=== PATIENT | male | born 1960 | race Caucasian/White ===

== ENCOUNTER 2017-08-08 15:07 | Inpatient (IN) | payer OTHER ==
[2017-08-08] MEDS ORDERED: Lactated Ringers 1,000 ML IV ONE (15:26)
[2017-08-08] MEDS: Sodium Chloride 0.9% 10 ML Syringe FLUSH PRN ×3 (15:33→22:48)
[2017-08-08 15:55] LABS: CHLORIDE,CL 103 mmol/L (101-111); SODIUM,NA 141 mmol/L (135-145)
[2017-08-08] MEDS ORDERED: MVI, Adult with Vitamin K 10 ML, Thiamine 100 MG, Folic Acid 1 MG in Lactated Ringers 1... IV ONE ×4 (16:22)
[2017-08-08] MEDS ORDERED: Albuterol 6.7 GM Inhaler INH PRN (16:49)
[2017-08-08] MEDS ORDERED: atorvaSTATin 20 MG Tab PO SCH (17:00)
--- NOTE | 2017-08-08 17:13 | EDM.PDOCBH ---
Scribed by Davina Solorio 08/08/17 1313 for Chandler Walter MD ED HPI GENERAL MEDICAL PROBLEM - General Chief Complaint: Drug or Alcohol Abuse Stated Complaint: BROUGHT IN LAW ENFORCEMENT Time Seen by Provider: 08/08/17 15:20 Source of Information: Reports: Patient, RN, RN Notes Reviewed History Limitations: Reports: Intoxication - History of Present Illness INITIAL COMMENTS - FREE TEXT/NARRATIVE: Patient presents by police with request for medical clearance due to intoxication after being arrested for DUI.Patient denies any complaints. During triage assessment patient was found to have a blood pressure of 70/33. Review of old records reveals history of hypertension and documented blood pressure of 170/90. Patient denies any chest pain, shortness of breath, dizziness or syncope. Onset: Today Severity: Severe Improves with: Reports: None Worsens with: Reports: None Associated Symptoms: Reports: No Other Symptoms - Related Data Allergies Allergy/AdvReac Type Severity Reaction Status Date / Time No Known Allergies Allergy Verified 07/27/14 06:15 Home Meds: Home Meds Albuterol [Ventolin HFA] 2 puff INH Q6H 07/23/14 [History] Aspirin [Ecotrin] 1 tab PO DAILY 07/23/14 [History] Diclofenac Sodium [Voltaren 1% Gel] 1 squirt TOP QID 07/23/14 [History] Gabapentin [Neurontin] 1 tab PO BEDTIME 07/23/14 [History] Hydrochlorothiazide 1 tab PO DAILY 07/23/14 [History] Lisinopril 1 tab PO DAILY 07/23/14 [History] Mometasone Furoate [Asmanex 220 MCG] 1 puff INH DAILY 07/23/14 [History] Mometasone/Formoterol [Dulera 200 Mcg/5 Mcg Inhaler] 2 puff INH BID 07/23/14 [ History] traMADol [Ultram] 1 tab PO BID 07/23/14 [History] traZODone 1 tab PO BEDTIME 07/23/14 [History] Allopurinol [Zyloprim] 100 mg PO DAILY 08/08/17 [History] Escitalopram Oxalate 10 mg PO BEDTIME 08/08/17 [History] Omeprazole 20 mg PO 08/08/17 [History] Timolol Maleate [Istalol] 1 drop 08/08/17 [History] atorvaSTATin Calcium [Atorvastatin Calcium] 20 mg PO 08/08/17 [History] tiZANidine [Zanaflex] 8 mg PO PRN 08/08/17 [History] Social & Family History - Tobacco Use Smoking Status *Q: Current Every Day Smoker Years of Tobacco use: 40 - Alcohol Use Days Per Week of Alcohol Use: 7 Number of Drinks Per Day: 3 Total Drinks Per Week: 21 - Recreational Drug Use Recreational Drug Use: No Drug Use in Last 12 Months: No ED ROS GENERAL - Review of Systems Review Of Systems: ROS reveals no pertinent complaints other than HPI. ED EXAM, BEHAVIORAL HEALTH - Physical Exam Exam: See Below Exam Limited By: Intoxication General Appearance: Alert, WD/WN, No Apparent Distress Eye Exam: Bilateral Eye: Normal Inspection Ears: Normal External Exam, Normal Canal, Hearing Grossly Normal, Normal TMs Nose: Normal Inspection, Normal Mucosa, No Blood Throat/Mouth: Other (dry oral membranes) Head: Atraumatic, Normocephalic Neck: Normal Inspection, Supple, Non-Tender, Full Range of Motion Respiratory/Chest: No Respiratory Distress, Lungs Clear, Normal Breath Sounds, No Accessory Muscle Use, Chest Non-Tender Cardiovascular: Normal Peripheral Pulses, Regular Rate, Rhythm, No Edema, No Gallop, No JVD, No Murmur, No Rub GI/Abdominal: Normal Bowel Sounds, Soft, Non-Tender, No Organomegaly, No Distention, No Abnormal Bruit, No Mass (Male) Exam: Deferred Rectal (Males) Exam: Deferred Back Exam: Other (except lumbar paraspinal tenderness.) Extremities: Normal Inspection, Normal Range of Motion, Non-Tender, Normal Capillary Refill, No Pedal Edema Neurological: Other (drowsy/intoxicated.) Psychiatric: Flat Affect Skin Exam: Warm EKG INTERPRETATION EKG Date: 08/08/17 Time: 15:34 Rhythm: Other (sinus rhythm) Rate (Beats/Min): 70 [place]: Normal P-Wave: Present QRS: Normal ST-T: Normal QT: Normal COURSE, BEHAVIORAL HEALTH COMP - Course Vital Signs: Last Vital Signs Temp 36.0 C 08/08/17 15:37 Pulse 76 08/08/17 16:36 Resp 18 08/08/17 16:36 BP 92/53 L 08/08/17 16:36 Pulse Ox 98 08/08/17 16:36 Orders, Labs, Meds: Active Orders 24 hr Category Date Time Status Blood Glucose Check, Bedside [] ONETIME Care 08/08/17 15:27 Active EKG 12 Lead [EKG Documentation Completion] [] STAT Care 08/08/17 15:27 Active Peripheral IV Care [] . DIRECTED Care 08/08/17 15:28 Active BASIC METABOLIC PANEL,BMP [CHEM] AM Lab 08/09/17 05:15 Ordered CBC WITH AUTO DIFF [HEME] AM Lab 08/09/17 05:15 Ordered DRUG SCREEN URINE BIORAD [URCHEM] Stat Lab 08/08/17 15:27 Uncollected UA W/MICROSCOPIC [URIN] Stat Lab 08/08/17 15:27 Uncollected Albuterol [Proventil HFA] Med 08/08/17 16:49 Active 0 gm INH Q6H PRN Allopurinol [Zyloprim] Med 08/09/17 09:00 Active 100 mg PO DAILY Aspirin [Halfprin] Med 08/09/17 09:00 Active 81 mg PO DAILY Escitalopram [Lexapro] Med 08/08/17 21:00 Active 10 mg PO BEDTIME Folic Acid Med 08/08/17 17:00 Active 1 mg PO DAILY MVI, Adult with Vitamin K [Infuvite Adult] 10 ml Med 08/08/17 16:22 Active Thiamine [Vitamin B-1] 100 mg Folic Acid 1 mg Lactated Ringers [Ringers, Lactated] 1,000 ml IV .BOLUS Mometasone Furoate [Asmanex 220 MCG] Med 08/08/17 17:00 Active 1 puff INH DAILY Multivitamins,Therapeutic [Thera] Med 08/08/17 21:00 Active 1 each PO BEDTIME Pantoprazole [ProTONIX] Med 08/08/17 21:00 Active 40 mg PO BEDTIME Sodium Chloride 0.9% [Saline Flush] Med 08/08/17 15:26 Active 10 ml FLUSH ASDIRECTED PRN Thiamine [Vitamin B-1] Med 08/08/17 17:00 Active 100 mg PO DAILY atorvaSTATin [Lipitor] Med 08/08/17 17:00 Active 20 mg PO .QHS Peripheral IV Insertion Adult [OM.PC] Stat Oth 08/08/17 15:26 Ordered Medication Orders Albuterol (Proventil Hfa) 0 gm INH Q6H PRN PRN Reason: sob Allopurinol (Zyloprim) 100 mg PO DAILY [facility] Aspirin (Halfprin) 81 mg PO DAILY [facility] Atorvastatin Calcium (Lipitor) 20 mg PO .QHS [facility] Escitalopram Oxalate (Lexapro) 10 mg PO BEDTIME [facility] Folic Acid (Folic Acid) 1 mg PO DAILY [facility] Multivitamins/Minerals 10 ml/Thiamine HCl 100 mg/ Folic Acid 1 mg/ Lactated Ringer's 1,011.2 mls @ 999 mls/hr IV .BOLUS ONE Stop: 08/08/17 17:22 Last Admin: 08/08/17 16:32 Dose: 999 mls/hr Mometasone Furoate (Asmanex 220 Mcg) 1 puff INH DAILY [facility] Multivitamins (Thera) 1 each PO BEDTIME [facility] Pantoprazole Sodium (Protonix) 40 mg PO BEDTIME [facility] Sodium Chloride (Saline Flush) 10 ml FLUSH ASDIRECTED PRN PRN Reason: Keep Vein Open Last Admin: 08/08/17 15:33 Dose: 10 ml Thiamine HCl (Vitamin B-1) 100 mg PO DAILY [facility] Laboratory Tests 08/08/17 08/08/17 08/08/17 Range/Units 15:20 15:20 15:35 WBC 5.9 (5.0-10.0) 10^3/uL RBC 4.94 (4.6-6.2) 10^6/uL Hgb 14.8 (14.0-18.0) g/dL Hct 43.8 (40.0-54.0) % MCV 88.7 (80-100) fL MCH 30.0 (27.0-34.0) pg MCHC 33.8 (33.0-35.0) g/dL Plt Count 145 L (150-450) 10^3/uL Neut % (Auto) 62.0 (42.2-75.2) % Lymph % (Auto) 27.1 (20.5-50.1) % Brooks % (Auto) 9.1 H (2-8) % Eos % (Auto) 0.3 L (1.0-3.0) % Baso % (Auto) 1.5 H (0.0-1.0) % Sodium 141 (135-145) mmol/L Potassium 3.9 (3.6-5.0) mmol/L Chloride 103 (101-111) mmol/L Carbon Dioxide 22.0 (21.0-31.0) mmol/L Anion Gap 19.9 BUN 12 (7-18) mg/dL Creatinine 1.7 H (0.6-1.3) mg/dL Est Cr Clr Drug Dosing 52.88 mL/min Estimated GFR (MDRD) 41 BUN/Creatinine Ratio 7.05 Glucose 132 H (74-105) mg/dL POC Glucose 120 H (70-105) mg/dl Calcium 8.9 (8.4-10.2) mg/dl Total Bilirubin 0.6 (0.2-1.0) mg/dL AST 58 H (10-42) IU/L ALT 81 H (10-60) IU/L Alkaline Phosphatase 76 (42-121) IU/L Troponin I < 0.02 (0.00-0.02) ng/ml Total Protein 7.3 (6.7-8.2) g/dl Albumin 4.4 (3.2-5.5) g/dl Globulin 2.9 Albumin/Globulin Ratio 1.52 Ethyl Alcohol 253 mg/dL Medications Generic Name Dose Route Start Last Admin Trade Name Freq PRN Reason Stop Dose Admin Albuterol 0 gm 08/08/17 16:49 Proventil Hfa INH Q6H PRN sob Allopurinol 100 mg 08/09/17 09:00 Zyloprim PO DAILY [facility] Aspirin 81 mg 08/09/17 09:00 Halfprin PO DAILY [facility] Atorvastatin Calcium 20 mg 08/08/17 17:00 Lipitor PO .QHS [facility] Escitalopram Oxalate 10 mg 08/08/17 21:00 Lexapro PO BEDTIME [facility] Folic Acid 1 mg 08/08/17 17:00 Folic Acid PO DAILY [facility] Multivitamins/Minerals 10 ml/ 1,011.2 mls @ 999 mls/hr 08/08/17 16:22 16:32 Thiamine HCl 100 mg/ Folic IV 08/08/17 17:22 999 mls/hr Acid 1 mg/ Lactated Ringer's .BOLUS ONE Administration Mometasone Furoate 1 puff 08/08/17 17:00 Asmanex 220 Mcg INH DAILY [facility] Multivitamins 1 each 08/08/17 21:00 Thera PO BEDTIME [facility] Pantoprazole Sodium 40 mg 08/08/17 21:00 Protonix PO BEDTIME [facility] Sodium Chloride 10 ml 08/08/17 15:26 08/08/17 15:33 Saline Flush FLUSH 10 ml ASDIRECTED PRN Administration Keep Vein Open Thiamine HCl 100 mg 08/08/17 17:00 Vitamin B-1 PO DAILY [facility] Discontinued Medications Generic Name Dose Route Start Last Admin Trade Name Freq PRN Reason Stop Dose Admin Lactated Ringer's 1,000 mls @ 999 mls/hr 08/08/17 15:26 08/08/17 15:33 Ringers, Lactated IV 08/08/17 16:26 999 mls/hr .BOLUS ONE Administration Departure - Departure Time of Disposition: 17:01 ((Admit to Dr. Rivas)) Disposition: Refer to Observation Condition: Fair Clinical Impression: Dehydration, Chronic alcohol abuse Hypotension Qualifiers: Hypotension type: unspecified hypotension type Qualified Code(s): I95.9 - Hypotension, unspecified Alcohol intoxication Qualifiers: Complication of substance-induced condition: uncomplicated Qualified Code(s): F10.920 - Alcohol use, unspecified with intoxication, uncomplicated - Discharge Information Forms: ED Department Discharge - My Orders Last 24 Hours: My Active Orders 08/08/17 15:26 Sodium Chloride 0.9% [Saline Flush] 10 ml FLUSH ASDIRECTED PRN Peripheral IV Insertion Adult [OM.PC] Stat 08/08/17 15:27 Blood Glucose Check, Bedside [RC] ONETIME EKG 12 Lead [EKG Documentation Completion] [RC] STAT DRUG SCREEN URINE BIORAD [URCHEM] Stat UA W/MICROSCOPIC [URIN] Stat 08/08/17 15:28 Peripheral IV Care [RC] . DIRECTED 08/08/17 16:22 MVI, Adult with Vitamin K [Infuvite Adult] 10 ml Thiamine [Vitamin B-1] 100 mg Folic Acid 1 mg Lactated Ringers [Ringers, Lactated] 1,000 ml IV .BOLUS - Assessment/Plan Last 24 Hours: My Active Orders 08/08/17 15:26 Sodium Chloride 0.9% [Saline Flush] 10 ml FLUSH ASDIRECTED PRN Peripheral IV Insertion Adult [OM.PC] Stat 08/08/17 15:27 Blood Glucose Check, Bedside [RC] ONETIME EKG 12 Lead [EKG Documentation Completion] [RC] STAT DRUG SCREEN URINE BIORAD [URCHEM] Stat UA W/MICROSCOPIC [URIN] Stat 08/08/17 15:28 Peripheral IV Care [RC] . DIRECTED 08/08/17 16:22 MVI, Adult with Vitamin K [Infuvite Adult] 10 ml Thiamine [Vitamin B-1] 100 mg Folic Acid 1 mg Lactated Ringers [Ringers, Lactated] 1,000 ml IV .BOLUS I have read and agree with the documentation that has been completed regarding this visit. By signing this record, I attest that the documentation was completed in my physical presence and is an accurate record of the encounter.
[2017-08-08] MEDS ORDERED: Ondansetron 4 MG/2 ML SDV IVPUSH PRN (18:04)
[2017-08-08] MEDS ORDERED: Ondansetron 4 MG Tab.DIS PO PRN (18:04)
--- NOTE | 2017-08-08 18:19 | PCM.HP ---
H&P History of Present Illness - General Date of Service: 08/08/17 Admit Problem/Dx: Admission Diagnosis/Problem Admission Diagnosis/Problem Hypotension Source of Information: Patient - History of Present Illness Initial Comments - Free Text/Narative: The patient is a 57-year-old gentleman with a history of hypertension, alcohol abuse The patient has been in alcohol treatment in [facility] last summer. The patient lost his job and started to drink about 2 weeks ago. Has been drinking heavily ever since. He was picked up by police for DUI. He was brought into the emergency room where he was noted to have blood pressure in the 70s. He has not been eating well lately, his complaining of chronic back pain. He has no chest pain, no shortness of breath. - Related Data Allergies/Adverse Reactions: Allergies Allergy/AdvReac Type Severity Reaction Status Date / Time No Known Allergies Allergy Verified 08/08/17 17:58 Home Medications: Home Meds Albuterol [Ventolin HFA] 2 puff INH Q6H PRN 07/23/14 [History] Aspirin [Ecotrin] 1 tab PO DAILY 07/23/14 [History] Diclofenac Sodium [Voltaren 1% Gel] 1 squirt TOP QID 07/23/14 [History] Gabapentin [Neurontin] 1 tab PO BEDTIME 07/23/14 [History] Hydrochlorothiazide 1 tab PO DAILY 07/23/14 [History] Lisinopril 1 tab PO DAILY 07/23/14 [History] Mometasone Furoate [Asmanex 220 MCG] 1 puff INH DAILY 07/23/14 [History] Mometasone/Formoterol [Dulera 200 Mcg/5 Mcg Inhaler] 2 puff INH BID 07/23/14 [ History] traMADol [Ultram] 1 tab PO BID 07/23/14 [History] traZODone 1 tab PO BEDTIME 07/23/14 [History] Allopurinol [Zyloprim] 100 mg PO DAILY 08/08/17 [History] Escitalopram Oxalate 10 mg PO BEDTIME 08/08/17 [History] Omeprazole 20 mg PO DAILY 08/08/17 [History] Timolol Maleate [Istalol] 1 drop EYEBOTH DAILY 08/08/17 [History] atorvaSTATin Calcium [Atorvastatin Calcium] 20 mg PO DAILY 08/08/17 [History] tiZANidine [Zanaflex] 8 mg PO BEDTIME PRN 08/08/17 [History] Past Medical History HEENT History: Reports: Impaired Vision Cardiovascular History: Reports: High Cholesterol, Hypertension Respiratory History: Reports: Asthma Gastrointestinal History: Reports: GERD Musculoskeletal History: Reports: Gout Psychiatric History: Reports: Addiction, Anxiety, Depression - Past Surgical History GI Surgical History: Reports: Other (See Below) Other GI Surgeries/Procedures: perforated ulcer Social & Family History - Family History Family Medical History: Unobtainable - Tobacco Use Smoking Status *Q: Current Every Day Smoker Years of Tobacco use: 40 - Alcohol Use Days Per Week of Alcohol Use: 7 Number of Drinks Per Day: 3 Total Drinks Per Week: 21 Date of Last Drink: 08/08/17 Time of Last Drink: 15:00 - Recreational Drug Use Recreational Drug Use: No Drug Use in Last 12 Months: No H&P Review of Systems - Review of Systems: Review Of Systems: See Below General: Denies: Fever, Chills Pulmonary: Denies: Shortness of Breath Cardiovascular: Denies: Chest Pain Psychiatric: Denies: Confusion Exam - Exam Exam: See Below - Vital Signs Vital Signs: Last Vital Signs Temp 36.0 C 08/08/17 15:37 Pulse 76 08/08/17 16:36 Resp 18 08/08/17 16:36 BP 92/53 L 08/08/17 16:36 Pulse Ox 98 08/08/17 16:36 Weight: 102.058 kg - Exam General: Alert, Oriented Neck: Supple Lungs: Normal Respiratory Effort, Wheezing Cardiovascular: Regular Rate, Regular Rhythm GI/Abdominal Exam: Normal Bowel Sounds, Soft, Non-Tender Extremities: No Pedal Edema - Patient Data Result Diagrams: 08/08/17 15:20 08/08/17 15:20 *Q Meaningful Use (ADM) - VTE *Q VTE Criteria *Q: - Stroke *Q Stroke Criteria *Q: - AMI *Q AMI Criteria *Q: - Problem List (1) Alcohol intoxication SNOMED Code(s): 83442617 ICD Code: F10.929 - ALCOHOL USE, UNSPECIFIED WITH INTOXICATION, UNSPECIFIED Status: Acute Current Visit: Yes Qualifiers: Complication of substance-induced condition: uncomplicated Qualified Code(s ): F10.920 - Alcohol use, unspecified with intoxication, uncomplicated (2) Hypotension SNOMED Code(s): 47012819 ICD Code: I95.9 - HYPOTENSION, UNSPECIFIED Status: Acute Current Visit: Yes Qualifiers: Hypotension type: unspecified hypotension type Qualified Code(s): I95.9 - Hypotension, unspecified Problem List Initiated/Reviewed/Updated: Yes Orders Last 24hrs: Active Orders 24 hr Category Date Time Status Patient Status [ADT] Routine ADT 08/08/17 18:04 Ordered Antiembolic Devices [RC] PER UNIT ROUTINE Care 08/08/17 18:06 Ordered Oxygen Therapy [RC] PRN Care 08/08/17 18:04 Ordered Up With Assistance [RC] ASDIRECTED Care 08/08/17 18:04 Ordered VTE/DVT Education [RC] PER UNIT ROUTINE Care 08/08/17 18:04 Ordered Vital Signs [RC] Q4H Care 08/08/17 18:04 Ordered Regular Diet [DIET] Diet 08/08/17 Breakfast Ordered Heparin Sodium Med 08/08/17 22:00 Ordered 5,000 units SUBCUT Q8HR Ondansetron [Zofran ODT] Med 08/08/17 18:04 Ordered 4 mg PO Q6H PRN Ondansetron [Zofran] Med 08/08/17 18:04 Ordered 4 mg IVPUSH Q6H PRN oxyCODONE Med 08/08/17 18:04 Ordered 5 mg PO Q4H PRN Antiembolic Hose [OM.PC] Per Unit Routine Oth 08/08/17 18:05 Ordered Resuscitation Status Routine Resus Stat 08/08/17 18:04 Ordered Medication Orders Albuterol (Proventil Hfa) 0 gm INH Q6H PRN PRN Reason: sob Allopurinol (Zyloprim) 100 mg PO DAILY [facility] Aspirin (Halfprin) 81 mg PO DAILY [facility] Atorvastatin Calcium (Lipitor) 20 mg PO .QHS [facility] Escitalopram Oxalate (Lexapro) 10 mg PO BEDTIME [facility] Folic Acid (Folic Acid) 1 mg PO DAILY [facility] Heparin Sodium (Porcine) (Heparin Sodium) 5,000 units SUBCUT Q8HR [facility] Mometasone Furoate (Asmanex 220 Mcg) 1 puff INH DAILY [facility] Multivitamins (Thera) 1 each PO BEDTIME [facility] Ondansetron HCl (Zofran Odt) 4 mg PO Q6H PRN PRN Reason: nausea, able to take PO Ondansetron HCl (Zofran) 4 mg IVPUSH Q6H PRN PRN Reason: Nausea/Vomiting Oxycodone HCl (Oxycodone) 5 mg PO Q4H PRN PRN Reason: Pain (moderate 4-6) Pantoprazole Sodium (Protonix) 40 mg PO BEDTIME [facility] Sodium Chloride (Saline Flush) 10 ml FLUSH ASDIRECTED PRN PRN Reason: Keep Vein Open Last Admin: 08/08/17 15:33 Dose: 10 ml Thiamine HCl (Vitamin B-1) 100 mg PO DAILY [facility] Assessment/Plan Comment:: The patient is a 57-year-old gentleman who was brought into the emergency room with alcohol intoxication by the police. He was noted to have hypotension in the 70s systolic blood pressure. He was given LR IV fluids in the emergency room. Acute alcohol intoxication Well give the patient IV fluids Follow electrolytes and replace them as needed Chronic alcohol use Supplement thiamine, folate, multivitamin Acute renal failure likely due to hypotension Give IV fluids Recheck renal studies in the morning Hypotension Likely due to a combination of blood pressure medications and possibly alcohol related to dehydration Hold blood lisinopril and hydrochlorothiazide Give IV fluids COPD Treat with Asmanex, albuterol when necessary DVT prophylaxis will be with subcutaneous heparin
[2017-08-08] MEDS ORDERED: LORazepam 1 MG Tab PO PRN (19:21)
[2017-08-08] MEDS: Mometasone Furoate Powder 220 MCG/Puff 14 Dose Inhaler INH SCH (21:03)
[2017-08-08] MEDS: Multivitamins,Therapeutic Tab PO SCH (21:05)
[2017-08-08] MEDS: Folic Acid 1 MG Tab PO SCH (21:05)
[2017-08-08] MEDS: Escitalopram 10 MG Tab PO SCH (21:05)
[2017-08-08] MEDS: Thiamine 100 MG Tab PO SCH (21:05)
[2017-08-08] MEDS: Pantoprazole 40 MG Tab.CR PO SCH (21:05)
[2017-08-08] MEDS: Heparin Sodium 5,000 Units/ML Vial SUBCUT SCH (21:11)
[2017-08-08] MEDS: oxyCODONE 5 MG Tab PO PRN (21:21)
[2017-08-08] MEDS: Acetaminophen 500 MG Tab PO PRN (22:32)
[2017-08-08] MEDS: Sodium Chloride 0.9% 1,000 ML IV SCH (22:49)
[2017-08-09] MEDS: Heparin Sodium 5,000 Units/ML Vial SUBCUT SCH ×3 (06:11→21:29)
[2017-08-09] MEDS: Acetaminophen 500 MG Tab PO PRN (07:08)
[2017-08-09] MEDS: oxyCODONE 5 MG Tab PO PRN ×3 (07:08→21:27)
[2017-08-09] MEDS: Thiamine 100 MG Tab PO SCH (08:34)
[2017-08-09] MEDS: Aspirin 81 MG Tab.EC PO SCH (08:35)
[2017-08-09] MEDS: Allopurinol 100 MG Tab PO SCH (08:35)
[2017-08-09] MEDS: Folic Acid 1 MG Tab PO SCH (08:35)
[2017-08-09] MEDS: Mometasone Furoate Powder 220 MCG/Puff 14 Dose Inhaler INH SCH (08:35)
[2017-08-09] MEDS: Sodium Chloride 0.9% 1,000 ML IV SCH ×2 (09:08→19:34)
--- NOTE | 2017-08-09 12:31 | PN ---
DATE: 08/09/2017 SUBJECTIVE: Mr. Esmer Martin is a 57-year-old male with medical history significant for hypertension, chronic alcohol use. He had been in alcohol treatment in the past, presented to the hospital with complaints of heavy drinking and was admitted to the hospital for hypotensive episodes. For the last 24 hours, he was continued on IV fluids. His blood pressure seems to be improved at this time. He is more awake and alert this morning. He complains of having cough with sputum production, which is greenish-yellow in color. Denies any chest pains. No shortness of breath. No abdominal pain. No nausea. No vomiting. No diarrhea. REVIEW OF SYSTEMS: Cardiovascular, respiratory, gastrointestinal, neurology, constitutional were all evaluated. PHYSICAL EXAMINATION: Vital Signs: Temperature of 98.3, T-max of 100.1, pulse of 69, blood pressure 153/74, respiratory rate of 20, saturating at 94% on room air. General Appearance: The patient is well oriented to time, place, and person. Follows commands spontaneously. Cardiovascular System: S1, S2 heard with normal intensity. No gallops. Respiratory System: Clear to auscultation bilaterally. No wheeze. No crepitations. Abdomen: Soft. Bowel sounds positive. Nontender. No rigidity. Extremities: No edema in bilateral lower extremities. Neurology: No gross focal neurological deficits. LABORATORY DATA: 1. WBC 6.8, hemoglobin 14.3, hematocrit 42.9, platelet count 118. 2. Sodium 138, potassium 3.6, chloride 103, bicarb 24, BUN 16, creatinine 1.4, glucose 104. 3. Urinalysis is negative for nitrites, negative for leukocyte esterase. 4. Urine toxicology screen positive for oxycodone and blood alcohol level was at 253. ASSESSMENT: 1. Acute alcohol intoxication. 2. Chronic alcohol abuse. 3. Hypertension, uncontrolled. 4. Acute renal failure. 5. Thrombocytopenia. PLAN: 1. Acute alcohol intoxication. The patient is presenting with acute alcohol intoxication. Continue with CIWA protocol for now. Use Ativan as needed for anxiety. Keep him hydrated with IV fluids. 2. Hypertension. The patient was noted to be hypotensive at the time of admission. Try to avoid any hypotensive episodes. Keep him hydrated with IV fluids. He is noted to have elevated blood pressure at this time and the patient not on any antihypertensive medications for now. We will closely follow the patient. 3. Thrombocytopenia, this seems to be chronic in nature with his chronic alcohol use. We will recheck CBC in a.m. 4. Cough with sputum production. He is complaining of cough with sputum production. He is also noted to have low-grade temperature of 100.1, one has to rule out possible pneumonia. We will get a chest x-ray and we will closely follow. We will also get some sputum cultures and blood cultures for now. The patient has chronic history of tobacco use. The patient would have bronchitis / RAD also. We will empirically start him on antibiotic with Levaquin. 5. Deep venous thrombosis prophylaxis. The patient is currently on heparin for deep venous thrombosis prophylaxis. We will continue the same. 6. Continue with IV thiamine, given his chronic alcohol use. 7. Chronic tobacco use and alcohol use. The patient is educated about alcohol cessation and tobacco cessation. We strongly encourage him to quit drinking and smoking, which he understands and verbalized the same. [facility] /[id number] ELLA
[2017-08-09] MEDS: Levofloxacin 500 MG Tab PO SCH (12:38)
--- NOTE | 2017-08-09 13:55 | CR ---
CLINICAL HISTORY: 57-year-old hospitalized male with cough. INTERPRETATION: Slight shaggy accentuation of the central lung markings (peribronchial "cuffing") and mild air trappi ng typical of reactive airway disease. Normal cardiac silhouette without cephalization of vascular flow, signs of alveolar edema or dependen t pleural effusion. No lung mass, hilar lymphadenopathy or focal lobar pneumonia. No atelectasis/collapse. No pneumothorax. CONCLUSION: Mild RAD. No signs of heart failure, lung mass or focal lobar pneumonia.
[2017-08-09] MEDS ORDERED: guaiFENesin 100 MG/5 ML Soln 5 ML UD Cup PO PRN (15:25)
[2017-08-09] MEDS: Multivitamins,Therapeutic Tab PO SCH (20:43)
[2017-08-09] MEDS: Escitalopram 10 MG Tab PO SCH (20:43)
[2017-08-09] MEDS: Pantoprazole 40 MG Tab.CR PO SCH (20:43)
[2017-08-10] MEDS: oxyCODONE 5 MG Tab PO PRN ×5 (01:31→21:15)
[2017-08-10] MEDS: Heparin Sodium 5,000 Units/ML Vial SUBCUT SCH ×3 (05:32→21:53)
[2017-08-10] MEDS: Sodium Chloride 0.9% 1,000 ML IV SCH (05:36)
[2017-08-10 08:10] LABS: CHLORIDE,CL 104 mmol/L (101-111); SODIUM,NA 137 mmol/L (135-145)
[2017-08-10] MEDS: Mometasone Furoate Powder 220 MCG/Puff 14 Dose Inhaler INH SCH (09:28)
[2017-08-10] MEDS: Folic Acid 1 MG Tab PO SCH (09:29)
[2017-08-10] MEDS: Thiamine 100 MG Tab PO SCH (09:29)
[2017-08-10] MEDS: Aspirin 81 MG Tab.EC PO SCH (09:29)
[2017-08-10] MEDS: Allopurinol 100 MG Tab PO SCH (09:29)
[2017-08-10] MEDS: Potassium Chloride 10 MEQ Tab.ER PO SCH ×2 (10:27→17:10)
[2017-08-10] MEDS: amLODIPine 5 MG Tab PO SCH (10:27)
[2017-08-10] MEDS: Acetaminophen 500 MG Tab PO PRN ×2 (10:31→17:10)
[2017-08-10] MEDS ORDERED: Sodium Chloride 0.9% 10 ML Syringe FLUSH PRN (11:11)
[2017-08-10] MEDS: Levofloxacin 500 MG Tab PO SCH (11:36)
[2017-08-10] MEDS: Pantoprazole 40 MG Tab.CR PO SCH ×2 (11:36→17:10)
--- NOTE | 2017-08-10 11:59 | PN ---
DATE: 08/10/2017 HISTORY OF PRESENT ILLNESS: Mr. Esmer Martin is a 57-year-old male with medical history significant for hypertension, chronic alcohol use, chronic tobacco use, admitted with acute alcohol intoxication, hypotensive episode. For the last 24 hours, the patient is complaining of right knee pain and bilateral foot pain. The patient is noted to have acute gouty arthritis. The patient has chronic history of gout. He grades the pain as 3 to 4/10 in intensity, aggravated on movement, and ambulation. Relieved with pain medication. Nonradiating type of pain, not associated with nausea and vomiting. Denies any chest pain. No shortness of breath, but complains of having constipation. REVIEW OF SYSTEMS: Cardiovascular, respiratory, gastrointestinal, neurology, constitutional were all evaluated. PHYSICAL EXAMINATION: Vital Signs: Temperature of 98.9, pulse of 66, blood pressure 150/71, respiratory rate of 20, saturating at 97% on room air General Appearance: The patient is well oriented to time, place, and person. Follows commands spontaneously. Cardiovascular System: S1, S2 heard with normal intensity. No gallops. Respiratory System: Clear to auscultation bilaterally. No wheeze. No crepitations. Abdomen: Soft. Bowel sounds positive. Nontender. No rigidity. Extremities: No edema in bilateral lower extremities. The patient is noted to have swollen knee on the right side. Warm to touch. He is also noted to have erythema and swelling around the greater toes bilaterally, but more so on the right toe. Neurology: No gross focal neurological deficits. MEDICATIONS: Reviewed. Continue with; 1. Allopurinol 100 mg daily. 2. Norvasc 5 mg daily. 3. Aspirin 81 mg daily. 4. Lipitor 20 mg daily. 5. Lexapro 10 mg at bedtime. 6. Folic acid 1 mg daily. 7. Heparin 5000 subcutaneous q.8 hourly. 8. Levaquin 500 mg oral daily. 9. Lorazepam 1 mg every 6 hours as needed for agitation. 10.Oxycodone 5 mg every 4 hours as needed for pain. 11.Potassium chloride 20 mEq twice a day. 12.Thiamine 100 mg daily. 13.Methylprednisolone 40 mg IV q.8 hourly. LABORATORY DATA: Sodium 137, potassium 3.5, chloride 104, bicarb 22, BUN 13, creatinine 1, glucose 110. ASSESSMENT: 1. Acute gouty arthritis flare up. 2. Acute alcohol intoxication. 3. Hypertension, resolved. 4. Acute hypokalemia. 5. Elevated blood pressure. 6. Acute renal failure, resolved. 7. Thrombocytopenia. PLAN: 1. Acute gouty arthritis flare up. The patient is noted to have acute arthritis involving the great toe consistent with gouty arthritis. The patient has history of gout in the past and is noted to be on allopurinol. We will add IV methylprednisone. The patient claims that he had peptic ulcer disease and perforated ulcer in the past, so would avoid high dose nonsteroid anti-inflammatory agents. We will also increase the Protonix to 40 mg twice a day to protect any ulcer disease. We will continue the IV methylprednisone. We will continue the allopurinol for now. 2. Hypertension. The patient continues to have elevated blood pressure. We will add Norvasc 5 mg once a day to better control the blood pressure. Stop the IV fluids. 3. Acute alcohol intoxication. The patient was educated about alcohol cessation. We strongly encouraged him to quit drinking which he understands sound by the same. 4. Cough with sputum. The patient had a chest x-ray yesterday which showed evidence of reactive airway disease. He is empirically started on oral Levaquin. Continue the same. The patient is encouraged to use incentive spirometer. 5. Deep vein thrombosis prophylaxis. Continue with heparin. 6. Alcohol abuse. The patient is currently on CIWA protocol. Use Ativan as needed for anxiety. 7. We will change the patient's status to inpatient as he would need IV methylprednisolone for acute gouty arthritis, and is unable to be discharged home at this time secondary to acute flare-up of his gout. [facility] /[id number]
[2017-08-10] MEDS: methylPREDNISolone Sodium Succinate 40 MG/1 ML SDV IVPUSH SCH ×2 (13:43→21:53)
[2017-08-10] MEDS: Sodium Chloride 0.9% 10 ML Syringe FLUSH PRN (13:43)
[2017-08-10] MEDS: Multivitamins,Therapeutic Tab PO SCH (21:14)
[2017-08-10] MEDS: atorvaSTATin 20 MG Tab PO SCH (21:15)
[2017-08-10] MEDS: Escitalopram 10 MG Tab PO SCH (21:15)
[2017-08-11] MEDS: Heparin Sodium 5,000 Units/ML Vial SUBCUT SCH ×3 (06:00→21:56)
[2017-08-11] MEDS: methylPREDNISolone Sodium Succinate 40 MG/1 ML SDV IVPUSH SCH ×3 (06:00→21:57)
[2017-08-11] MEDS: oxyCODONE 5 MG Tab PO PRN ×3 (06:04→20:38)
[2017-08-11] MEDS: Pantoprazole 40 MG Tab.CR PO SCH ×2 (06:04→17:53)
[2017-08-11] MEDS: Potassium Chloride 10 MEQ Tab.ER PO SCH ×2 (07:58→17:51)
[2017-08-11] MEDS: Mometasone Furoate Powder 220 MCG/Puff 14 Dose Inhaler INH SCH (08:04)
[2017-08-11] MEDS: amLODIPine 5 MG Tab PO SCH (08:06)
[2017-08-11] MEDS: Aspirin 81 MG Tab.EC PO SCH (08:06)
[2017-08-11] MEDS: Allopurinol 100 MG Tab PO SCH (08:06)
[2017-08-11] MEDS: Thiamine 100 MG Tab PO SCH (08:06)
[2017-08-11] MEDS: Folic Acid 1 MG Tab PO SCH (08:06)
[2017-08-11] MEDS: Acetaminophen 500 MG Tab PO PRN ×2 (08:09→14:09)
--- NOTE | 2017-08-11 12:02 | PN ---
DATE: 08/11/2017 SUBJECTIVE: Mr. Esmer Martin is a 57-year-old male with medical history significant for hypertension, chronic alcohol use, chronic tobacco use, admitted with acute alcohol intoxication, hypertensive episode. Further hospital course complicated with acute gouty arthritis. For the last 24 hours, the patient continues to have pain to the right knee and also to the right foot in the greater toe. The patient was started on IV methylprednisone. He continues to have pain to the lower extremities, 6/10 in intensity, aggravated on ambulation, relieved with pain medication, not associated with nausea or vomiting. Denies any chest pain. No shortness of breath. No abdominal pain. REVIEW OF SYSTEMS: Cardiovascular, respiratory, gastrointestinal, neurology, constitutional were all evaluated. PHYSICAL EXAMINATION: Vital Signs: Temperature of 97.1, pulse of 61, blood pressure 154/76, respiratory rate of 20, saturating at 96% on room air. General Appearance: Patient is well oriented to time, place, and person. Follows commands spontaneously. Cardiovascular System: S1, S2 heard with normal intensity. No gallops. Respiratory System: Clear to auscultation bilaterally. No wheeze. No crepitations. Abdomen: Soft. Bowel sounds positive. Nontender. No rigidity. No guarding. No rebound tenderness. Extremities: Swelling noted around the right knee and also to the right great toe. Warm to touch and tender to touch. Neurology: No gross focal neurological deficits. MEDICATIONS: Reviewed. 1. Continue with allopurinol 100 mg daily. 2. Norvasc 5 mg daily. 3. Aspirin 81 mg daily. 4. Lipitor 20 mg daily. 5. Lexapro 10 mg at bedtime. 6. Folic acid 1 mg daily. 7. Robitussin 100 mg every 6 hours as needed for cough. 8. Heparin 5000 subcutaneous q.8 hourly. 9. Levaquin 500 mg daily. 10.Ativan 1 mg every 6 hours as needed for agitation. 11.Solu-Medrol 40 mg IV q.8 hourly. 12.Oxycodone 5 mg every 4 hours as needed for pain. 13.Protonix 40 mg twice a day. 14.Thiamine 100 mg daily. LABORATORY DATA: Sodium 137, potassium 3.5, chloride 104, bicarb 22, BUN 13, creatinine 1, glucose 110. Microbiology, no growth in the blood culture so far. ASSESSMENT: 1. Acute gouty arthritis. 2. Acute alcohol intoxication, resolved. 3. Hypotension, resolved. 4. Hypokalemia. 5. Hypertension. 6. Acute renal failure, resolved. 7. Thrombocytopenia. PLAN: 1. Acute gouty arthritis. The patient continues to have pain and swelling to the right knee and also to the right foot greater toe. No signs of infection identified at this time. Patient remains afebrile. No leukocytosis is noted. We will continue with the current treatment plan. Continue with IV methylprednisone. Continue with allopurinol. His acute alcohol intoxication could have flared up his gouty arthritis. The patient was educated about alcohol cessation. 2. Hypokalemia. We will replace with oral potassium chloride. Recheck a basic metabolic panel in the a.m. 3. Acute renal failure, resolved. His creatinine is back to his baseline function. Avoid any nephrotoxic agents. 4. Peptic ulcer disease. The patient had history of perforated ulcer in the past. Avoid any NSAIDs. Continue with the Protonix twice a day, given his steroid dosing. 5. Deep venous thrombosis prophylaxis. Continue with heparin for deep venous thrombosis prophylaxis. 6. Hypertension. The patient noted to have elevated blood pressure. This could be resulting from the pain also. Continue with oral pain medication. He is also noted to be on oxycodone. Start him on low-dose Norvasc at 5 mg. We will further dose adjust the medication to optimize his blood pressure. [facility] /[id number]
[2017-08-11] MEDS: Levofloxacin 500 MG Tab PO SCH (12:56)
[2017-08-11] MEDS: Sodium Chloride 0.9% 10 ML Syringe FLUSH PRN (13:57)
[2017-08-11] MEDS: Lidocaine 5% 700 MG Patch TOP SCH (15:28)
[2017-08-11] MEDS: atorvaSTATin 20 MG Tab PO SCH (20:36)
[2017-08-11] MEDS: Escitalopram 10 MG Tab PO SCH (20:36)
[2017-08-11] MEDS: Multivitamins,Therapeutic Tab PO SCH (20:36)
[2017-08-11] MEDS: Remove Patch LIDODERM TRDERM SCH (20:37)
[2017-08-11] MEDS: Zolpidem 5 MG Tab PO PRN (21:56)
[2017-08-12] MEDS: Pantoprazole 40 MG Tab.CR PO SCH ×2 (05:47→17:33)
[2017-08-12] MEDS: methylPREDNISolone Sodium Succinate 40 MG/1 ML SDV IVPUSH SCH ×3 (05:47→21:04)
[2017-08-12] MEDS: Heparin Sodium 5,000 Units/ML Vial SUBCUT SCH ×3 (05:50→21:04)
[2017-08-12] MEDS: oxyCODONE 5 MG Tab PO PRN ×2 (05:52→21:05)
[2017-08-12 07:16] LABS: CHLORIDE,CL 102 mmol/L (101-111); SODIUM,NA 138 mmol/L (135-145)
[2017-08-12] MEDS ORDERED: LORazepam 1 MG Tab PO PRN (08:22)
[2017-08-12] MEDS: Potassium Chloride 10 MEQ Tab.ER PO SCH ×2 (08:42→17:33)
[2017-08-12] MEDS: Folic Acid 1 MG Tab PO SCH (08:43)
[2017-08-12] MEDS: Aspirin 81 MG Tab.EC PO SCH (08:43)
[2017-08-12] MEDS: Mometasone Furoate Powder 220 MCG/Puff 14 Dose Inhaler INH SCH (08:43)
[2017-08-12] MEDS: Allopurinol 100 MG Tab PO SCH (08:44)
[2017-08-12] MEDS: Thiamine 100 MG Tab PO SCH (08:44)
[2017-08-12] MEDS: amLODIPine 5 MG Tab PO SCH (08:44)
[2017-08-12] MEDS: Lidocaine 5% 700 MG Patch TOP SCH (08:45)
--- NOTE | 2017-08-12 09:31 | PN ---
DATE: 08/12/2017 SUBJECTIVE: Mr. Esmer Martin is a 57-year-old male with medical history significant for hypertension, chronic alcohol use, chronic tobacco use, admitted with acute alcohol intoxication and hypotensive episodes. Hospital course was complicated with acute gouty arthritis. For the last 24 hours, the patient has pain to the right lower extremity, knee and the foot, which seems to be improving at this time. He grades the pain as 2/10 in intensity, aggravated on ambulation, relieved with pain medication, nonradiating type of pain, not associated with any nausea or vomiting. Denies any chest pain. No shortness of breath. No abdominal pain. REVIEW OF SYSTEMS: Cardiovascular, respiratory, gastrointestinal, neurology, constitutional were all evaluated. PHYSICAL EXAMINATION: Vital Signs: Temperature of 98.3, pulse of 65, blood pressure 132/79, respiratory rate of 18, and saturating at 95% on room air. General Appearance: The patient is well oriented to time, place, and person. Follows commands spontaneously. Cardiovascular System: S1 and S2 heard with normal intensity. No gallops. Respiratory System: Clear to auscultation bilaterally. No wheeze. No crepitations. Abdomen: Soft. Bowel sounds positive. Nontender. No rigidity. Extremities: No edema in bilateral lower extremities. Mild swelling around the right knee and also the right great toe, but improved from yesterday. Neurology: No gross focal neurological deficit. MEDICATIONS: Reviewed. Continue with: 1. Allopurinol 100 mg daily. 2. Heparin for DVT prophylaxis. 3. Levaquin 500 mg daily. 4. Methylprednisone 40 mg IV q.8 hourly. LABORATORY DATA: Labs are reviewed. 1. WBC 13.2, hemoglobin 14.8, hematocrit 43.8, and platelet count 145. 2. Sodium 138, potassium 4.4, chloride 103, bicarb 28. BUN 18, creatinine 1. ASSESSMENT: 1. Acute gouty arthritis. 2. Acute alcohol intoxication, resolved. 3. Hypertension, resolved. 4. Hypokalemia, improved. 5. Acute renal failure, resolved. 6. Thrombocytopenia. PLAN: 1. Acute gouty arthritis. This seems to be much better. The patient is currently on IV methylprednisone. Continue the same. We will switch him to oral prednisone at the time of discharge and continue with allopurinol. His acute gouty arthritis is mainly from his acute alcohol intoxication. 2. Chronic alcohol use. The patient is educated about alcohol cessation. Strongly encouraged him to quit drinking which he understands and verbalized the same. We will discontinue the CIWA protocol. The patient does not have any signs of withdrawals at this time. We will have him on Ativan as needed for anxiety. 3. Hypertension, much improved. 4. Acute renal failure, resolved. 5. Possible discharge in a.m. if he remains hemodynamically stable. [facility] /[id number]
[2017-08-12] MEDS: Levofloxacin 500 MG Tab PO SCH (11:52)
[2017-08-12] MEDS: Sodium Chloride 0.9% 10 ML Syringe FLUSH PRN (13:46)
[2017-08-12] MEDS: Remove Patch LIDODERM TRDERM SCH (21:05)
[2017-08-12] MEDS: atorvaSTATin 20 MG Tab PO SCH (21:05)
[2017-08-12] MEDS: Escitalopram 10 MG Tab PO SCH (21:05)
[2017-08-12] MEDS: Zolpidem 5 MG Tab PO PRN (21:05)
[2017-08-12] MEDS: Multivitamins,Therapeutic Tab PO SCH (21:05)
[2017-08-13] MEDS: Heparin Sodium 5,000 Units/ML Vial SUBCUT SCH (05:46)
[2017-08-13] MEDS: Pantoprazole 40 MG Tab.CR PO SCH (05:46)
[2017-08-13] MEDS: methylPREDNISolone Sodium Succinate 40 MG/1 ML SDV IVPUSH SCH (05:46)
--- NOTE | 2017-08-13 07:08 | EKG ---
08/08/2017 - ISABEL LEO - A 12-lead EKG shows normal sinus rhythm with no significant ST elevation or ST depression noted on this 12-lead EKG. [facility] /[id number]
[2017-08-13] MEDS: Aspirin 81 MG Tab.EC PO SCH (09:29)
[2017-08-13] MEDS: Potassium Chloride 10 MEQ Tab.ER PO SCH (09:30)
[2017-08-13] MEDS: Allopurinol 100 MG Tab PO SCH (09:30)
[2017-08-13] MEDS: Thiamine 100 MG Tab PO SCH (09:30)
[2017-08-13] MEDS: amLODIPine 5 MG Tab PO SCH (09:31)
[2017-08-13] MEDS: Mometasone Furoate Powder 220 MCG/Puff 14 Dose Inhaler INH SCH (09:32)
[2017-08-13] MEDS: Lidocaine 5% 700 MG Patch TOP SCH (09:33)
[2017-08-13] MEDS: Folic Acid 1 MG Tab PO SCH (09:36)
[2017-08-13 10:17] VITALS: BP 150/93
[2017-08-13] MEDS: Levofloxacin 500 MG Tab PO SCH (13:18)
--- NOTE | 2017-08-14 07:03 | DISCH ---
PATIENT ADMITTED ON 08/08/2017 ADMITTING DIAGNOSES: 1. Acute alcohol intoxication. 2. Hypotension. 3. Acute renal failure secondary to hypotension. 4. Chronic obstructive pulmonary disease. DISCHARGE DIAGNOSES: 1. Acute alcohol intoxication, resolved. 2. Hypotension, resolved with IV fluids. 3. Acute renal failure, resolved with IV hydration. 4. Acute gouty arthritis, treated with prednisone. 5. Chronic obstructive pulmonary disease. 6. Hypokalemia, improved. 7. Thrombocytopenia. HISTORY OF PRESENTING ILLNESS: Mr. Esmer Martin is a 57-year-old male with a medical history significant for hypertension, chronic alcohol use, chronic tobacco use, admitted with acute alcohol intoxication and hypotensive episodes. The patient required IV fluids and his blood pressures improved. He was kept on CIWA protocol for possible alcohol withdrawal. He was given Ativan as needed for anxiety. The patient had complications with acute gouty arthritis, where he had his right knee and also the right great toe affected. He was started on IV methylprednisone. The patient had history of peptic ulcer disease, so could not use high dose nonsteroidal anti-inflammatory agents. The patient is currently on allopurinol, we will continue the same. The patient was educated about alcohol cessation and strongly encouraged him to quit drinking, which he understands and verbalized the same. He responded well to the prednisone, and his acute gouty arthritis seems to be resolved at the time of discharge. He is able to ambulate well without any difficulty. He was continued on inhalation treatment for his chronic obstructive pulmonary disease. We also added fluticasone at the time of discharge for his COPD. He is discharged home in stable condition. He is advised to follow with his primary care physician in next 1 week of time. PHYSICAL EXAMINATION: On the day of discharge: Vital Signs: Temperature of 96.9, pulse of 67, blood pressure 151/92, respiratory rate of 20, saturating at 95% on room air. General Appearance: The patient is well oriented to time, place, and person. Follows commands spontaneously. Cardiovascular System: S1, S2 heard with normal intensity. No gallops. Respiratory System: Clear to auscultation bilaterally. No wheeze. No crepitations. Abdomen: Soft. Bowel sounds positive. Nontender. No rigidity. Extremities: No edema in bilateral lower extremities. Neurology: No gross focal neurological deficits. DISCHARGE MEDICATIONS: 1. Albuterol one puff inhalation daily as needed. 2. Albuterol two puffs inhalation every 6 hours as needed. 3. Allopurinol 100 mg daily. 4. Escitalopram 10 mg at bedtime. 5. Flovent one puff inhalation twice a day. 6. Levaquin 500 mg daily for the next 7 days. 7. Lisinopril one tablet daily. 8. Dulera two puffs inhalation twice a day. 9. Omeprazole 20 mg daily. 10.Prednisone tapered dose with 20 mg for 5 days, 10 mg for 3 days, and 5 mg for 3 days. 11.Timolol eyedrops daily. 12.Norvasc 5 mg daily for hypertension. 13.Lipitor 20 mg daily. 14.Tizanidine/Zanaflex 8 mg at bedtime as needed for muscle spasms. CONDITION ON ADMISSION: Poor. CONDITION ON DISCHARGE: Stable. ACTIVITY: As tolerated. DIET: Cardiac healthy diet. The patient is educated about alcohol cessation and strongly encouraged him to quit drinking. FOLLOWUP: Follow up with primary care physician in next one week of time. Spent over 35 minutes of time in evaluating and treating this patient and discharge planning. [facility] /[id number] ELL[place]
== END 2017-08-13 13:30 | disposition home or self-care (01) | DRG 554 ==
LOC: DL.ED 15:07 → UNDOADMOB 17:40 → DL.MS 17:40 → OBSVTOIN 18:04 → INTOOBSV 18:04 → DL.MS 18:04 → OBSVTOIN 08-10 11:09
PROVIDERS: ADMIT Internal Medicine; ATTEND Internal Medicine
DX: M10.9 Gout, unspecified (principal); E86.0 Dehydration; F10.129 Alcohol abuse with intoxication, unspecified; N17.9 Acute kidney failure, unspecified; R05 Cough; F10.920 Alcohol use, unspecified with intoxication, uncomplicated; I95.9 Hypotension, unspecified; Y90.9 Presence of alcohol in blood, level not specified; F17.210 Nicotine dependence, cigarettes, uncomplicated; H54.7 Unspecified visual loss; E78.00 Pure hypercholesterolemia, unspecified; J45.909 Unspecified asthma, uncomplicated; K21.9 Gastro-esophageal reflux disease without esophagitis; F32.9 Major depressive disorder, single episode, unspecified; F41.9 Anxiety disorder, unspecified; J44.9 Chronic obstructive pulmonary disease, unspecified; M25.561 Pain in right knee; M79.672 Pain in left foot; M79.671 Pain in right foot; Z79.82 Long term (current) use of aspirin; Z79.899 Other long term (current) drug therapy; E87.6 Hypokalemia; D69.6 Thrombocytopenia, unspecified; Z87.11 Personal history of peptic ulcer disease
CPT/HCPCS: 36415 ×3; 71020; 80048 ×2; 80053; 80305; 81001; 82962 ×2; 84484; 85025 ×2; 87040 ×2; 93005; 93010; 96360; 96361; 99285; A9270 ×30; G0480; J1644 ×5; J3411; J7030 ×4; J7050 ×3; J7120 ×2; 85027; 96365; 96372; 99220; 99225; 99284; G0378; J2920; J3490